=== PATIENT | female | born 1985 | race Caucasian/White ===

== ENCOUNTER 2018-12-09 16:42 | Outpatient (CLI) | payer BC ==
[2018-12-09 19:48] VITALS: BP 120/84; PULSE 88; RESP 18; TEMP 98.2
--- NOTE | 2018-12-22 16:11 | P.MSEPDOC ---
Presenting Problems - Arrival Data Date of Arrival on Unit: 12/09/18 Time of Arrival on Unit: 16:42 Mode of Transport: Ambulatory - Complaint OB-Reason for Admission/Chief Complaint: Decreased Movement Medical History - Information : 1 Para: 0 Term: 0 : 0 Abortions: Spontaneous or Elective: 0 Number of Living Children: 0 - Gestational Age Gestational Age by DOMENIC (wks/days): 39 Weeks and 6 Days Review of Systems - Review of Systems Constitutional: No problems Breast: No problems ENT: No problems Cardiovascular: No problems Respiratory: No problems Gastrointestinal: No problems Genitourinary: No problems Musculoskeletal: No problems Neurological: No problems Skin: No problems Vital Signs - Temperature Temperature: 98.2 F Temperature Source: Temporal Artery Scan - Pulse Right Pulse Rate: 88 Pulse Assessment Method: Pulse Oximetry - Respirations Respiratory Rate: 18 Oxygen Delivery Method: Room Air O2 Sat by Pulse Oximetry: 100 - Blood Pressure Right Arm Blood Pressure: 120/84 Blood Pressure Mean: 96 Blood Pressure Source: Automatic Cuff Medical Screen Scoring (Pre) - Cervical Exam Dilation: 1-3 cm = 1 Effacement: Exam Deferred Membranes: Intact - Uterine Contractions Frequency: > 5 minutes apart = 1 Duration: N/A Intensity: N/A - Maternal Vital Signs Maternal Temperature: N/A Maternal Blood Pressure: N/A Signs of Preeclampsia: N/A Maternal Respirations: N/A - Maternal Trauma Maternal Trauma: N/A - Assessment - Baby A Baseline FHR: 130 Heart Rate - NICHD Category: Category I (Normal) = 0 NST: Reactive Position: N/A Station: N/A - Total Score - Baby A Total Score - Baby A: 2 - Level of Risk - Baby A Level of Risk - Baby A: Low (0-5) - Pain Assessment Pain Location and Character: Abdomen Pain Scale Used: Numeric (1 - 10) Pain Intensity: 2 Pain Management Goal: 2 Pain Description: *Acute, Cramping, Tightness Pain Frequency: Intermittent Pain Duration Units: Minutes Pain Behavior: Vocalization Pain Aggravating Factors: Contractions Non-Pharmacological Interventions: Distraction, Environmental Control, Position/Reposition, Relaxation Technique Physician Notification (Pre) - Physician Notified Physician Notified Date: 12/09/18 Physician Notified Time: 17:35 Physician/Practitioner Notifed:: Spoke With: Dr. Horacio New Order Received: Yes (If pt hasn't made change in hour discharge home with instructions.) Medical Screen Scoring (Post) - Cervical Exam Dilation: 1-3 cm = 1 Effacement: Exam Deferred Membranes: Intact - Uterine Contractions Frequency: > 5 minutes apart = 1 Duration: N/A Intensity: N/A - Maternal Vital Signs Maternal Temperature: N/A Maternal Blood Pressure: N/A Signs of Preeclampsia: N/A Maternal Respirations: N/A - Pain Assessment Pain Location and Character: Abdomen Pain Scale Used: Numeric (1 - 10) Pain Intensity: 2 Pain Management Goal: 2 Pain Description: *Acute, Cramping, Tightness Pain Frequency: Intermittent Pain Duration Units: Minutes Pain Behavior: Vocalization Pain Aggravating Factors: Contractions Non-Pharmacological Interventions: Environmental Control, Position/Reposition, Relaxation Technique - Maternal Trauma Maternal Trauma: N/A - Assessment - Baby A Heart Rate: 130 Heart Rate - NICHD Category: Category I (Normal) = 0 NST: Reactive Position: N/A Station: N/A - Total Score Total Score - Baby A: 2 - Post Treatment Level of Risk Post Treatment Level of Risk - Baby A: Low (0-5) Disposition - Disposition OB Disposition: Discharge to home Discharge Date: 12/09/18 Discharge Time: 18:07 I agree with the RN Medical Screening Exam: Yes Risk & Benefit of care provided described in d/c instruction: Yes Diagnosis: DECREASED MOVEMENTS, THIRD TRIMESTER, UNSP
== END 2018-12-09 18:07 | disposition home or self-care (01) ==
LOC: FBPOP 16:42
PROVIDERS: ATTEND Obstetrics & Gynecology
DX: O36.8190 Decreased fetal movements, unspecified trimester, not applicable or unspecified (principal); Z3A.39 39 weeks gestation of pregnancy
CPT/HCPCS: 59025; 99213

== ENCOUNTER 2018-12-12 09:46 | Inpatient (IN) | payer BC ==
[2018-12-12] MEDS ORDERED: METHYLERGONOVINE 0.2 MG/ML 1 ML AMP IM PRN (10:48)
[2018-12-12] MEDS ORDERED: LIDOCAINE 0.5% (PF) 5 MG/ML (50 ML SDV) SQ PRN (10:48)
[2018-12-12] MEDS ORDERED: CARBOPROST TROMETHAMINE 250 MCG/ML 1 ML AMP IM PRN (10:48)
[2018-12-12] MEDS ORDERED: TERBUTALINE 1 MG/ML VIAL SQ PRN (10:48)
[2018-12-12] MEDS ORDERED: OXYTOCIN 10 UNIT/ML 1 ML VIAL IM PRN (10:48)
[2018-12-12] MEDS ORDERED: OXYTOCIN 30 UNITS/500 ML NS 30 UNIT in SALINE 1 500ML.BAG IV SCH (11:00)
[2018-12-12 11:16] VITALS: BMI 39.4
[2018-12-12 11:27] LABS: Basophils % (A) 0 %; Eosinophils # (A) 0.1 k/uL (0-0.7); Eosinophils % (A) 1 %; HCT 46.9 % (34.0-46.0); HGB 15.4 gm/dL (11.4-16.0); Lymphocytes # (A) 1.8 k/uL (1.0-4.8); Lymphocytes % (A) 14 %; MCH 29.3 pg (25.0-35.0); MCHC 32.8 g/dL (31.0-37.0); MCV 89.3 fL (80.0-100.0); Mean Platelet Volume 9.5; Monocytes # (A) 0.6 k/uL (0-1.0); Monocytes % (A) 5 %; Neutrophils # (A) 9.9 k/uL (1.3-7.7); Neutrophils % (A) 79 %; Platelet Count 248 k/uL (150-450); RBC 5.25 m/uL (3.80-5.40); RDW 14.7 % (11.5-15.5); WBC 12.6 k/uL (3.8-10.6)
[2018-12-12] MEDS: LACTATED RINGERS 1,000 ML IV SCH ×2 (11:28→20:06)
[2018-12-12] MEDS ORDERED: SODIUM CHLORIDE 0.9% 100 ML BAG ONE (11:44)
[2018-12-12] MEDS ORDERED: fentaNYL (PF) 50 MCG/ML 5 ML AMP ONE (11:44)
[2018-12-12] MEDS ORDERED: ROPIVACAINE 5MG/ML 20ML VIAL ONE (11:44)
--- NOTE | 2018-12-12 12:41 | P.HPOB ---
History of Present Illness H&P Date: 12/12/18 Chief Complaint: Contractions This is a 33-year-old female 1 para 0 with an estimated date of confinement of 12/10/2018, estimated gestational age of 40-2/7 weeks, who presents to labor and delivery with complaints of contractions that became stronger this morning. She was seen in the office by Dr. Leonard yesterday and apparently Dr. Leonard did strip her membranes. course has been uncomplicated per patient. labs: Hepatitis B surface antigen-negative RPR-nonreactive Rubella-immune Blood type-O+ Antibody screen-negative HIV-nonreactive Hemoglobin-14.4 Random glucose-75 Obstetrical ultrasound-normal anatomy One hour Glucola-120 Group B streptococcus-negative Obstetrical history: . Gynecologic history: No history of sexual transmitted diseases Social history: She is . 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 Review of Systems Constitutional: Denies chills, Denies fever Eyes: denies blurred vision, denies pain Ears, nose, mouth and throat: Denies headache, Denies sore throat Cardiovascular: Denies chest pain, Denies shortness of breath Respiratory: Denies cough Gastrointestinal: Reports abdominal pain (Contractions) Genitourinary: Reports pelvic pain, Reports Musculoskeletal: Reports low back pain Integumentary: Denies pruritus, Denies rash Neurological: Denies numbness, Denies weakness Past Medical History Past Medical History: GERD/Reflux Additional Past Medical History / Comment(s): Migraines History of Any Multi-Drug Resistant Organisms: None Reported Past Surgical History: Hernia Repair Additional Past Surgical History / Comment(s): age 6; excision of sebaceous cyst off of leg Past Anesthesia/Blood Transfusion Reactions: No Reported Reaction Past Psychological History: No Psychological Hx Reported Smoking Status: Never smoker Past Drug Use History: None Reported - Past Family History Father Family Medical History: No Reported History Medications and Allergies Home Medications Medication Instructions Recorded Confirmed Type Doxylamine Succinate [Unisom] 1 tab PO DAILY PRN 12/09/18 12/12/18 History Pnv 76/Iron,Gluc/Folic/Dss/Dha 1 tab PO DAILY 12/09/18 12/12/18 History [Citranatal Dha Pack] Ranitidine HCl [Zantac] 75 mg PO BID 12/09/18 12/12/18 History diphenhydrAMINE HCL [Benadryl] 25 mg PO HS 12/09/18 12/12/18 History Allergies Allergy/AdvReac Type Severity Reaction Status Date / Time No Known Allergies Allergy Verified 12/12/18 10:04 Exam Osteopathic Statement: *. No significant issues noted on an osteopathic structural exam other than those noted in the History and Physical/Consult. Vital Signs Temp Pulse Resp BP 12/12/18 10:07 98.1 F 88 16 123/81 Intake and Output 12/11/18 12/12/18 12/12/18 22:59 06:59 14:59 Other: Weight 121.109 kg HEENT: Within normal limits Heart: Regular rate and rhythm Lungs: Clear to auscultation bilaterally Abdomen: Cervix: Initially was 4 cm on admission to triage and she did make change to 5- 1/2 cm within an hour. Effacement is 90%, station is -2. Artificial rupture membranes is carried out and she is currently 6 cm/100%/-2 station. Meconium stained fluid is noted. heart tones: Reactive Contractions: Every 2-3 minutes Extremities: Negative Homans Results Result Diagrams: 12/12/18 11:05 Abnormal Lab Results - Last 24 Hours (Table) 12/12/18 Range/Units 11:05 WBC 12.6 H (3.8-10.6) k/uL Hct 46.9 H (34.0-46.0) % Neutrophils # 9.9 H (1.3-7.7) k/uL Assessment and Plan (1) 40 weeks gestation of Current Visit: Yes Status: Acute Code(s): Z3A.40 - 40 WEEKS GESTATION OF SNOMED Code(s): 78970079 (2) Meconium in amniotic fluid Current Visit: Yes Status: Acute Code(s): P96.83 - MECONIUM STAINING SNOMED Code(s): 957939458 Plan: Admission for active labor. Epidural anesthesia. Expectant management.
[2018-12-12] MEDS ORDERED: HYDROcodone/APAP 5-325MG 1 EACH TAB PO PRN (15:24)
[2018-12-12] MEDS ORDERED: SIMETHICONE 80 MG CHEWABLE PO PRN (15:24)
[2018-12-12] MEDS ORDERED: diphenhydrAMINE 50 MG CAP PO PRN (15:24)
[2018-12-12] MEDS ORDERED: ZOLPIDEM 5 MG TAB PO PRN (15:24)
[2018-12-12] MEDS ORDERED: diphenhydrAMINE 50 MG/ML 1 ML VIAL IVP PRN ×2 (15:24)
[2018-12-12] MEDS ORDERED: ACETAMINOPHEN TAB 325 MG TAB PO PRN (15:24)
[2018-12-12] MEDS ORDERED: HYDROCORTISONE 2.5% RECTAL CREAM 30 GM TUBE RECTAL PRN (15:24)
[2018-12-12] MEDS ORDERED: WITCH HAZEL 1 EACH MED..PAD TOPICAL PRN (15:24)
[2018-12-12] MEDS ORDERED: BENZOCAINE/MENTHOL SPRAY 1 GM/SPRAY AEROSOL TOPICAL PRN (15:24)
[2018-12-12] MEDS ORDERED: diphenhydrAMINE 25 MG CAP PO PRN (15:24)
[2018-12-12] MEDS ORDERED: LANOLIN CREAM 5 GM TUBE TOPICAL PRN (15:24)
[2018-12-12] MEDS ORDERED: OXYTOCIN 20 UNITS/1000 ML NS 1,000 ML IV SCH (15:30)
--- NOTE | 2018-12-12 16:42 | P.PROBDLV ---
Vaginal Delivery Note - . Vaginal Delivery Note: The patient progressed to complete dilation after artificial rupture membranes with thin meconium noted. She did receive epidural anesthesia. Once reaching complete dilation, she began pushing. Infant's head came to a crown. With one further push, the infant's head delivered across the perineum and a left occiput anterior lie followed by the anterior shoulder. Nose and mouth were bulb suctioned at the perineum. With one further push, the remainder the e asily delivered reducing nuchal cord times one around the body. was placed on mother's abdomen. Brisk cry was noted immediately. Cord was clamped and cut and was taken to warmer for evaluation. A viable female infant was noted with scores of 9 at 1 minute and 10 at 5 minutes and infant weight of 8 pounds 1.5 ounces. Placenta delivered shortly thereafter, intact, with a three-vessel cord. There is a slight marginal cord insertion noted. No other abnormalities were noted. Uterus contracted fairly well after oxytocin was given and uterine massage was carried out. Inspection of the perineum revealed a second-degree perineal laceration and a right periurethral laceration. The perineal laceration was repaired with 3-0 and 2-0 Vicryl suture in the usual multilayer fashion after anesthetizing with 1% lidocaine. At this time the right periurethral laceration was noted to be hemostatic and therefore no stitching was completed. Estimated blood loss is approximately 150 mL. Mother and are in stable condition.
[2018-12-12] MEDS: IBUPROFEN 600 MG TAB PO PRN (18:50)
[2018-12-12] MEDS: SENNOSIDES-DOCUSATE SODIUM 1 EACH TAB PO SCH (20:06)
[2018-12-13] MEDS: IBUPROFEN 600 MG TAB PO PRN ×4 (01:05→19:19)
[2018-12-13] MEDS: SENNOSIDES-DOCUSATE SODIUM 1 EACH TAB PO SCH ×3 (01:05→21:55)
--- NOTE | 2018-12-13 13:04 | P.DS ---
Providers Date of admission: 12/12/18 10:53 Expected date of discharge: 12/13/18 Attending physician: Jaylin Leonard Primary care physician: Stated None - Discharge Diagnosis(es) (1) Normal vaginal delivery Current Visit: Yes Status: Acute Hospital Course: Pt presented in active labor with SROM. She underwent a normal vaginal delivery. Her pp course was uncomplicated. She will be discharged home PPD #1 in stable condition to follow up with me in 6 weeks. Plan - Discharge Summary New Discharge Prescriptions: New Ibuprofen [Motrin] 600 mg PO Q6HR PRN #30 tab PRN Reason: Mild Pain Or Fever >= 100.5 No Action diphenhydrAMINE HCL [Benadryl] 25 mg PO HS Pnv 76/Iron,Gluc/Folic/Dss/Dha [Citranatal Dha Pack] 1 tab PO DAILY Ranitidine HCl [Zantac] 75 mg PO BID Doxylamine Succinate [Unisom] 1 tab PO DAILY PRN PRN Reason: Nausea Discharge Medication List Doxylamine Succinate [Unisom] 1 tab PO DAILY PRN 12/09/18 [History] Pnv 76/Iron,Gluc/Folic/Dss/Dha [Citranatal Dha Pack] 1 tab PO DAILY 12/09/18 [History] Ranitidine HCl [Zantac] 75 mg PO BID 12/09/18 [History] diphenhydrAMINE HCL [Benadryl] 25 mg PO HS 12/09/18 [History] Ibuprofen [Motrin] 600 mg PO Q6HR PRN #30 tab 12/13/18 [Rx] Follow up Appointment(s)/Referral(s): Jaylin Leonard DO [Doctor of Osteopathic Medicine] - 6 Weeks Discharge Disposition: HOME SELF-CARE
[2018-12-14] MEDS: IBUPROFEN 600 MG TAB PO PRN ×2 (04:19→10:25)
[2018-12-14] MEDS: SENNOSIDES-DOCUSATE SODIUM 1 EACH TAB PO SCH (08:00)
[2018-12-14 11:13] VITALS: BP 112/68; PULSE 80; RESP 18; TEMP 98.5
--- NOTE | 2018-12-14 11:45 | P.DS ---
Providers Date of admission: 12/12/18 10:53 Expected date of discharge: 12/14/18 Attending physician: Jaylin Leonard Primary care physician: Stated None Hospital Course: Discharge was canceled yesterday there are no changes to discharge summary today baby had to stay due to jaundice she will be discharged home today. Patient Condition at Discharge: Good Plan - Discharge Summary New Discharge Prescriptions: New Ibuprofen [Motrin] 600 mg PO Q6HR PRN #30 tab PRN Reason: Mild Pain Or Fever >= 100.5 No Action diphenhydrAMINE HCL [Benadryl] 25 mg PO HS Pnv 76/Iron,Gluc/Folic/Dss/Dha [Citranatal Dha Pack] 1 tab PO DAILY Ranitidine HCl [Zantac] 75 mg PO BID Doxylamine Succinate [Unisom] 1 tab PO DAILY PRN PRN Reason: Nausea Discharge Medication List Doxylamine Succinate [Unisom] 1 tab PO DAILY PRN 12/09/18 [History] Pnv 76/Iron,Gluc/Folic/Dss/Dha [Citranatal Dha Pack] 1 tab PO DAILY 12/09/18 [History] Ranitidine HCl [Zantac] 75 mg PO BID 12/09/18 [History] diphenhydrAMINE HCL [Benadryl] 25 mg PO HS 12/09/18 [History] Ibuprofen [Motrin] 600 mg PO Q6HR PRN #30 tab 12/13/18 [Rx] Follow up Appointment(s)/Referral(s): Jaylin Leonard DO [Doctor of Osteopathic Medicine] - 6 Weeks Discharge Disposition: HOME SELF-CARE
== END 2018-12-14 16:00 | disposition home or self-care (01) | DRG 806 ==
LOC: FBPOP 09:46 → 4FBP 10:53
PROVIDERS: ADMIT Obstetrics & Gynecology; ATTEND Obstetrics & Gynecology
PROC: 10E0XZZ Delivery of Products of Conception, External Approach (ICD-10-PCS; principal; 2018-12-12)
PROC: 0KQM0ZZ Repair Perineum Muscle, Open Approach (ICD-10-PCS; 2018-12-12)
PROC: 00HU33Z Insertion of Infusion Device into Spinal Canal, Percutaneous Approach (ICD-10-PCS; 2018-12-12)
PROC: 3E0R3BZ Introduction of Anesthetic Agent into Spinal Canal, Percutaneous Approach (ICD-10-PCS; 2018-12-12)
DX: O77.0 Labor and delivery complicated by meconium in amniotic fluid (principal); O99.354 Diseases of the nervous system complicating childbirth; O69.81X0 Labor and delivery complicated by cord around neck, without compression, not applicable or unspecified; G43.909 Migraine, unspecified, not intractable, without status migrainosus; O99.62 Diseases of the digestive system complicating childbirth; K21.9 Gastro-esophageal reflux disease without esophagitis; O70.1 Second degree perineal laceration during delivery; O71.82 Other specified trauma to perineum and vulva; Z37.0 Single live birth; Z3A.40 40 weeks gestation of pregnancy
CPT/HCPCS: 59025; 85025; 86850; 86900; 86901; 99213

== ENCOUNTER → 2020-02-26 | Outpatient (CLI) | payer BC ==
[~2020-02-26] MED LIST: CALCIUM CARBONATE LIQUID 500 MG/5 ML CUP PO SCH; HYDROcodone/APAP 5-325MG 1 EACH TAB PO STA
[2020-02-26 17:09] VITALS: BP 121/79; PULSE 88; RESP 18; TEMP 96.7
--- NOTE | 2020-02-26 17:39 | P.MSEPDOC ---
Presenting Problems - Arrival Data Date of Arrival on Unit: 02/26/20 Time of Arrival on Unit: 14:40 Mode of Transport: Ambulatory - Complaint OB-Reason for Admission/Chief Complaint: Headache Comment: migraine Medical History - Information : 2 Para: 1 Term: 1 : 0 Abortions: Spontaneous or Elective: 0 Number of Living Children: 1 - Gestational Age Gestational Age by DOMENIC (wks/days): 40 Weeks and 1 Days Review of Systems - Review of Systems Constitutional: No problems Breast: No problems ENT: No problems Cardiovascular: No problems Respiratory: No problems Gastrointestinal: No problems Genitourinary: No problems Musculoskeletal: No problems Neurological: No problems Skin: No problems Vital Signs - Temperature Temperature: 96.7 F Temperature Source: Temporal Artery Scan - Pulse Right Brachial Pulse Rate: 88 Pulse Assessment Method: Automatic Cuff - Respirations Respiratory Rate: 18 Oxygen Delivery Method: Room Air - Blood Pressure Right Arm Blood Pressure: 121/79 Blood Pressure Mean: 93 Blood Pressure Source: Automatic Cuff Medical Screen Scoring (Pre) - Cervical Exam Dilation: 1-3 cm = 1 Effacement: More than 50% = 2 Membranes: Intact - Uterine Contractions Frequency: > or = 36 weeks =2 Duration: > 40 seconds = 2 Intensity: N/A - Maternal Vital Signs Maternal Temperature: N/A Maternal Blood Pressure: N/A Signs of Preeclampsia: N/A Maternal Respirations: N/A - Maternal Trauma Maternal Trauma: N/A - Assessment - Baby A Baseline FHR: 125 Heart Rate - NICHD Category: Category I (Normal) = 0 NST: Reactive Position: N/A Station: N/A - Total Score - Baby A Total Score - Baby A: 7 - Total Score - Baby B Total Score - Baby B: 7 - Total Score - Baby C Total Score - Baby C: 7 - Level of Risk - Baby A Level of Risk - Baby A: Medium (6-9) - Level of Risk - Baby B Level of Risk - Baby B: Medium (6-9) - Level of Risk - Baby C Level of Risk - Baby C: Medium (6-9) Physician Notification (Pre) - Physician Notified Physician Notified Date: 02/26/20 Physician Notified Time: 15:39 New Order Received: Yes (Jennifer, may go home or stay obv if prefers) - Notification Comment Comment: [place] helped some, pt wanted to go home and come back in am for induction Disposition - Disposition OB Disposition: Triage, Discharge to home, Written follow up instructions reviewed Discharge Date: 02/26/20 Discharge Time: 16:28 I agree with the RN Medical Screening Exam: Yes Risk & Benefit of care provided described in d/c instruction: Yes Diagnosis: MIGRAINE W/O AURA, INTRACTABLE, WITHOUT STATUS MIGRAINOSUS
== END ==
LOC: FBPOP 14:40
PROVIDERS: ATTEND Obstetrics & Gynecology
DX: O99.89 Other specified diseases and conditions complicating pregnancy, childbirth and the puerperium (principal); G43.019 Migraine without aura, intractable, without status migrainosus; Z3A.40 40 weeks gestation of pregnancy
CPT/HCPCS: 59025; 99213

== ENCOUNTER 2020-02-27 06:15 | Inpatient (IN) | payer BC ==
[2020-02-27] MEDS ORDERED: TERBUTALINE 1 MG/ML VIAL SQ PRN (06:41)
[2020-02-27] MEDS ORDERED: CARBOPROST TROMETHAMINE 250 MCG/ML 1 ML AMP IM PRN (06:41)
[2020-02-27] MEDS ORDERED: OXYTOCIN 10 UNIT/ML 1 ML VIAL IM PRN (06:41)
[2020-02-27] MEDS ORDERED: LIDOCAINE 0.5% (PF) 5 MG/ML (50 ML SDV) SQ PRN (06:41)
[2020-02-27] MEDS: LACTATED RINGERS 1,000 ML IV SCH ×2 (06:49→11:38)
[2020-02-27] MEDS: OXYTOCIN 30 UNITS/500 ML NS 30 UNIT in SALINE 1 500ML.BAG IV SCH (07:00)
[2020-02-27 07:11] LABS: Basophils % (A) 0 %; Eosinophils # (A) 0.2 k/uL (0-0.7); Eosinophils % (A) 2 %; HCT 41.7 % (34.0-46.0); HGB 13.7 gm/dL (11.4-16.0); Lymphocytes # (A) 2.2 k/uL (1.0-4.8); Lymphocytes % (A) 25 %; MCH 29.7 pg (25.0-35.0); MCHC 32.9 g/dL (31.0-37.0); MCV 90.4 fL (80.0-100.0); Mean Platelet Volume 9.5; Monocytes # (A) 0.6 k/uL (0-1.0); Monocytes % (A) 7 %; Neutrophils # (A) 5.9 k/uL (1.3-7.7); Neutrophils % (A) 65 %; Platelet Count 204 k/uL (150-450); RBC 4.62 m/uL (3.80-5.40); RDW 13.2 % (11.5-15.5); WBC 9.1 k/uL (3.8-10.6)
[2020-02-27] MEDS ORDERED: ROPIVACAINE 5MG/ML 20ML VIAL ONE (10:41)
[2020-02-27] MEDS ORDERED: SODIUM CHLORIDE 0.9% 100 ML BAG ONE (10:41)
[2020-02-27] MEDS ORDERED: fentaNYL (PF) 50 MCG/ML 5 ML AMP ONE (10:41)
[2020-02-27] MEDS ORDERED: ACETAMINOPHEN TAB 325 MG TAB PO PRN (16:16)
[2020-02-27] MEDS ORDERED: LANOLIN CREAM 5 GM TUBE TOPICAL PRN (16:16)
[2020-02-27] MEDS ORDERED: diphenhydrAMINE 50 MG CAP PO PRN (16:16)
[2020-02-27] MEDS ORDERED: ZOLPIDEM 5 MG TAB PO PRN (16:16)
[2020-02-27] MEDS ORDERED: diphenhydrAMINE 25 MG CAP PO PRN (16:16)
[2020-02-27] MEDS ORDERED: BENZOCAINE/MENTHOL SPRAY 1 GM/SPRAY AEROSOL TOPICAL PRN (16:16)
[2020-02-27] MEDS: IBUPROFEN 600 MG TAB PO PRN ×2 (16:36→21:16)
[2020-02-27] MEDS: OXYTOCIN 20 UNITS/1000 ML NS 1,000 ML IV SCH ×2 (16:39→19:47)
[2020-02-27] MEDS: METHYLERGONOVINE 0.2 MG/ML 1 ML AMP IM PRN ×2 (18:08→20:23)
[2020-02-27] MEDS ORDERED: BUTORPHANOL 1 MG/ML 1 ML VIAL IV PRN (18:28)
--- NOTE | 2020-02-27 20:27 | P.HPOB ---
History of Present Illness H&P Date: 02/27/20 Chief Complaint: Induction of labor 34-year-old presents at 40 weeks and 2 days for induction of labor. Her cervix is 3 cm dilated, 70% effaced, and -2 station. She is lyndsay irregularly. heart tones 135 with moderate variability and reactive. Review of Systems All systems: negative Constitutional: Denies chills, Denies fever Eyes: denies blurred vision, denies pain Ears, nose, mouth and throat: Denies headache, Denies sore throat Cardiovascular: Denies chest pain, Denies shortness of breath Respiratory: Denies cough Gastrointestinal: Denies abdominal pain, Denies diarrhea, Denies nausea, Denies vomiting Genitourinary: Denies dysuria, Denies hematuria Musculoskeletal: Denies myalgias Integumentary: Denies pruritus, Denies rash Neurological: Denies numbness, Denies weakness Psychiatric: Denies anxiety, Denies depression Endocrine: Denies fatigue, Denies weight change Past Medical History Past Medical History: GERD/Reflux Additional Past Medical History / Comment(s): Migraines. Obstetric history: She's had one previous vaginal delivery. This is her second . She's had care with me since the first trimester. Blood type is O+, abs negative, rubella immune, hep B-, GBS negative, RPR nonreactive. History of Any Multi-Drug Resistant Organisms: None Reported Past Surgical History: Hernia Repair Additional Past Surgical History / Comment(s): age 6; excision of sebaceous cyst off of leg Past Anesthesia/Blood Transfusion Reactions: No Reported Reaction Past Psychological History: No Psychological Hx Reported Smoking Status: Never smoker Past Drug Use History: None Reported - Past Family History Father Family Medical History: No Reported History Medications and Allergies Home Medications Medication Instructions Recorded Confirmed Type RX: Pnv 76/Iron,Gluc/Folic/Dss/Dha 1 tab PO DAILY 12/09/18 02/27/20 History [Citranatal Dha Pack] diphenhydrAMINE HCL [Benadryl] 25 mg PO HS 12/09/18 02/27/20 History Cholecalciferol [Vitamin D3 (25 50 mcg PO DAILY 02/26/20 02/27/20 History Mcg = 1000 Iu)] RX: Melatonin 5 mg PO HS PRN 02/26/20 02/27/20 History Allergies Allergy/AdvReac Type Severity Reaction Status Date / Time No Known Allergies Allergy Verified 02/27/20 06:40 Exam Osteopathic Statement: *. No significant issues noted on an osteopathic structural exam other than those noted in the History and Physical/Consult. Vital Signs Temp Pulse Resp BP Pulse Ox 02/27/20 20:00 80 72/50 02/27/20 19:55 88 14 85/58 99 02/27/20 18:20 97.8 F 96 16 115/65 02/27/20 17:50 97.4 F L 93 16 116/71 98 02/27/20 17:01 95 16 112/74 02/27/20 16:35 90 16 112/74 02/27/20 15:55 114 H 16 96/55 02/27/20 15:40 102 H 16 103/58 02/27/20 15:25 105 H 16 104/57 02/27/20 15:10 106 H 16 126/60 02/27/20 14:55 97.8 F 103 H 16 120/65 02/27/20 08:00 97.3 F L 94 16 127/82 Intake and Output 02/27/20 02/27/20 02/27/20 06:59 14:59 22:59 Intake Total 391.667 Output Total 100 Balance 291.667 Intake: Intake, IV Titration 391.667 Amount Oxytocin 20 Units/1000 ml 391.667 Ns 1,000 ml @ Per Protocol IV .Q0M [facility] Rx#: [id number] Output: Estimated Blood Loss 100 Other: # Voids 1 Weight 124.738 kg 124.738 kg Heart: Regular rate and rhythm Lungs: Clear to auscultation bilaterally Abdomen: Soft, nontender Extremities: Negative Homans sign Results Result Diagrams: 02/27/20 06:40 Assessment and Plan (1) Normal labor Current Visit: Yes Status: Acute Code(s): O80 - ENCOUNTER FOR FULL-TERM UNCOMPLICATED DELIVERY; Z37.9 - OUTCOME OF DELIVERY, UNSPECIFIED SNOMED Code(s): 12506073 Plan: 1. Induction of labor with amniotomy and Pitocin 2. Anticipate normal vaginal delivery.
--- NOTE | 2020-02-27 20:31 | P.PROBDLV ---
Vaginal Delivery Note - . Vaginal Delivery Note: 34-year-old presents at 40 weeks and 2 days for induction of labor. Her cervix is 3 cm dilated, 70% effaced, and -2 station. She is lyndsay irregularly. heart tones 135 with moderate variability and reactive. Amniotomy was performed at 7:13 AM and clear fluid noted. Pitocin was also started. When she was uncomfortable she did get an epidural. Her cervix was completely dilated around 2:30 in the afternoon. She pushed, delivered a viable male over intact perineum under epidural anesthesia at 1442. Head delivered OA, anterior shoulder attempted to be delivered but was not moving despite pushing and gentle downward guidance. A shoulder dystocia was identified and patient was placed in Becky position. The posterior shoulder was delivered followed by the anterior shoulder and the rest of the body. Total time between the head delivering and the rest of the body was less than 30 seconds. Nose and mouth bulb suctioned, cord clamped and cut, placed on mother's abdomen. Apgars 9, 9, weight 9 lbs. 1 oz. Placenta delivered spontaneously, intact with three-vessel cord at 1444. Vagina, cervix, and perineum were inspected. First-degree midline laceration was repaired with 3-0 Vicryl. Estimated blood loss 100 mL. Mother and baby in stable condition.
[2020-02-27 20:38] LABS: Basophils % (A) 0 %; Eosinophils # (A) 0.1 k/uL (0-0.7); Eosinophils % (A) 1 %; HCT 36.1 % (34.0-46.0); Lymphocytes # (A) 3.1 k/uL (1.0-4.8); Lymphocytes % (A) 21 %; MCH 30.2 pg (25.0-35.0); MCHC 33.1 g/dL (31.0-37.0); MCV 91.2 fL (80.0-100.0); Monocytes # (A) 0.8 k/uL (0-1.0); Monocytes % (A) 5 %; Neutrophils # (A) 10.7 k/uL (1.3-7.7); Neutrophils % (A) 71 %; Platelet Count 212 k/uL (150-450); RBC 3.96 m/uL (3.80-5.40); RDW 13.2 % (11.5-15.5); WBC 14.9 k/uL (3.8-10.6)
[2020-02-27] MEDS: SIMETHICONE 80 MG CHEWABLE PO PRN (22:42)
[2020-02-28] MEDS: SENNOSIDES-DOCUSATE SODIUM 1 EACH TAB PO SCH ×3 (02:59→21:12)
[2020-02-28] MEDS: IBUPROFEN 600 MG TAB PO PRN ×4 (03:05→18:42)
[2020-02-28 07:38] LABS: Basophils % (A) 0 %; Eosinophils # (A) 0.1 k/uL (0-0.7); Eosinophils % (A) 1 %; HCT 27.6 % (34.0-46.0); Lymphocytes # (A) 2.5 k/uL (1.0-4.8); Lymphocytes % (A) 22 %; MCH 30.1 pg (25.0-35.0); MCHC 33.1 g/dL (31.0-37.0); MCV 90.9 fL (80.0-100.0); Mean Platelet Volume 10.8; Monocytes # (A) 0.5 k/uL (0-1.0); Monocytes % (A) 4 %; Neutrophils # (A) 8.3 k/uL (1.3-7.7); Neutrophils % (A) 72 %; Platelet Count 183 k/uL (150-450); RBC 3.03 m/uL (3.80-5.40); RDW 13.5 % (11.5-15.5); WBC 11.6 k/uL (3.8-10.6)
[2020-02-28 07:43] LABS: HGB 9.1 gm/dL (11.4-16.0)
[2020-02-28] MEDS: LACTATED RINGERS 1,000 ML IV SCH ×2 (08:31→16:20)
[2020-02-28] MEDS: OXYTOCIN 30 UNITS/500 ML NS 30 UNIT in SALINE 1 500ML.BAG IV SCH (08:32)
--- NOTE | 2020-02-28 10:26 | P.PNOBGVD ---
Subjective - Subjective Principal diagnosis: Status post normal vaginal delivery day #1 Interval history: Physical patient's bedside yesterday evening for increased cramping and blood clots. When I came to the bedside and the patient was in mild distress, cramping and complaining of back pain. Her vital signs were stable. A massage her uterus and manually evacuated clots from her uterus. I did this 2 times and at the end the quantitative blood loss was around a liter. Over the course of the next couple hours her bleeding decreased slowly. I did have to give her 2 doses of Methergine and increased the dose and rate. Her blood pressure did go down but she was not tachycardic. She did get a little bit dizzy at times. Hemoglobin went from 13.7-12. Today the hemoglobin is 9.1 which is likely and neck. Reflection of the blood loss less than. Today she is feeling much better, not dizzy when she gets up to the bathroom, her bleeding has slowed significantly, vital signs are stable. Patient reports: Reports appetite normal, Reports voiding normally, Reports pain well controlled, Reports ambulating normally [place]: doing well Objective - Latest Vital Signs Latest vital signs: Vital Signs Temp Pulse Resp BP Pulse Ox 02/28/20 08:00 100 02/28/20 07:45 98.6 F 103 H 18 101/63 100 02/28/20 04:00 98 F 96 14 99/62 100 02/28/20 00:00 98.9 F 97 14 93/61 99 02/27/20 20:36 78/54 02/27/20 20:00 80 72/50 02/27/20 19:55 88 14 85/58 99 02/27/20 18:20 97.8 F 96 16 115/65 02/27/20 17:50 97.4 F L 93 16 116/71 98 02/27/20 17:01 95 16 112/74 02/27/20 16:35 90 16 112/74 02/27/20 15:55 114 H 16 96/55 02/27/20 15:40 102 H 16 103/58 02/27/20 15:25 105 H 16 104/57 02/27/20 15:10 106 H 16 126/60 02/27/20 14:55 97.8 F 103 H 16 120/65 Intake and Output 02/27/20 02/28/2002/27/20 22:59 06:59 14:59 Intake Total 391.667 Output Total 200 600 Balance 191.667 -600 Intake: Intake, IV Titration 391.667 Amount Oxytocin 20 Units/1000 ml 391.667 Ns 1,000 ml @ Per Protocol IV .Q0M [facility] Rx#: [id number] Output: Urine 100 600 Straight 100 Estimated Blood Loss 100 Other: Voiding Method Toilet # Voids 1 1 1 # Bowel Movements 1 - Exam Lungs: bilateral: normal Chest: Normal S1, Normal S2 Extremities: Present: normal Abdomen: Present: normal appearance, soft Uterus: Present: normal, firm - Labs Labs: Abnormal Lab Results - Last 24 Hours (Table) 02/27/20 02/28/20 Range/Units 20:09 06:47 WBC 14.9 H 11.6 H (3.8-10.6) k/uL RBC 3.03 L (3.80-5.40) m/uL Hgb 9.1 L D (11.4-16.0) gm/dL Hct 27.6 L (34.0-46.0) % Neutrophils # 10.7 H 8.3 H (1.3-7.7) k/uL Assessment and Plan (1) Normal labor Current Visit: Yes Status: Resolved Code(s): O80 - ENCOUNTER FOR FULL-TERM UNCOMPLICATED DELIVERY; Z37.9 - OUTCOME OF DELIVERY, UNSPECIFIED SNOMED Code(s): 82273804 (2) Normal vaginal delivery Current Visit: No Status: Acute Code(s): O80 - ENCOUNTER FOR FULL-TERM UNCOMPLICATED DELIVERY SNOMED Code(s): 02640339 (3) hemorrhage Current Visit: Yes Status: Acute Code(s): O72.1 - OTHER IMMEDIATE HEMORRHAGE SNOMED Code(s): 19815788 (4) Anemia due to acute blood loss Current Visit: Yes Status: Acute Code(s): D62 - ACUTE POSTHEMORRHAGIC ANEMIA SNOMED Code(s): 018768127 Plan: 1. Continue to monitor bleeding 2. Monitor vitals closely 3. care
[2020-02-28] MEDS ORDERED: HYDROcodone/APAP 7.5-325MG 1 EACH TAB PO ONE (19:33)
[2020-02-28] MEDS: SIMETHICONE 80 MG CHEWABLE PO PRN (23:13)
[2020-02-29] MEDS: IBUPROFEN 600 MG TAB PO PRN (05:15)
--- NOTE | 2020-02-29 07:04 | P.DS ---
Providers Date of admission: 02/27/20 06:28 Expected date of discharge: 02/29/20 Attending physician: Jaylin Leonard Primary care physician: Stated None - Discharge Diagnosis(es) (1) Normal labor Current Visit: Yes Status: Resolved (2) Normal vaginal delivery Current Visit: No Status: Acute (3) hemorrhage Current Visit: Yes Status: Acute (4) Anemia due to acute blood loss Current Visit: Yes Status: Acute Hospital Course: Patient presented for induction of labor. She underwent normal vaginal delivery. course was complicated by hemorrhage a few hours after her delivery due to uterine atony. This resolved with manual extraction of clots, Pitocin and Methergine. Her hemoglobin went from 13.7-9.1. Her blood pressure is stable she is not tachycardic, no headache no vision changes no shortness of breath no fever nor chills no chest pain or dizziness with standing. She was discharged home day #2 in stable condition to follow-up with me in 6 weeks. Plan - Discharge Summary New Discharge Prescriptions: New Ibuprofen [Motrin] 600 mg PO Q6HR PRN #30 tab PRN Reason: Mild Pain Or Fever >= 100.5 No Action diphenhydrAMINE HCL [Benadryl] 25 mg PO HS Pnv 76/Iron,Gluc/Folic/Dss/Dha [Citranatal Dha Pack] 1 tab PO DAILY Melatonin 5 mg PO HS PRN PRN Reason: Insomnia Cholecalciferol [Vitamin D3 (25 Mcg = 1000 Iu)] 50 mcg PO DAILY Discharge Medication List Pnv 76/Iron,Gluc/Folic/Dss/Dha [Citranatal Dha Pack] 1 tab PO DAILY 12/09/18 [History] diphenhydrAMINE HCL [Benadryl] 25 mg PO HS 12/09/18 [History] Cholecalciferol [Vitamin D3 (25 Mcg = 1000 Iu)] 50 mcg PO DAILY 02/26/20 [His tory] Melatonin 5 mg PO HS PRN 02/26/20 [History] Ibuprofen [Motrin] 600 mg PO Q6HR PRN #30 tab 02/29/20 [Rx] Follow up Appointment(s)/Referral(s): Jaylin Leonard DO [Doctor of Osteopathic Medicine] - 6 Weeks Discharge Disposition: HOME SELF-CARE
[2020-02-29 08:49] VITALS: BP 120/66; PULSE 110; RESP 18; TEMP 98.8
[2020-02-29] MEDS: SENNOSIDES-DOCUSATE SODIUM 1 EACH TAB PO SCH (12:39)
== END 2020-02-29 10:27 | disposition home or self-care (01) | DRG 806 ==
LOC: 4FBP 06:28
PROVIDERS: ADMIT Obstetrics & Gynecology; ATTEND Obstetrics & Gynecology
PROC: 3E0R3NZ Introduction of Analgesics, Hypnotics, Sedatives into Spinal Canal, Percutaneous Approach (ICD-10-PCS; principal; 2020-02-27)
PROC: 3E033VJ Introduction of Other Hormone into Peripheral Vein, Percutaneous Approach (ICD-10-PCS; principal; 2020-02-27)
PROC: 0HQ9XZZ Repair Perineum Skin, External Approach (ICD-10-PCS; principal; 2020-02-27)
PROC: 10E0XZZ Delivery of Products of Conception, External Approach (ICD-10-PCS; principal; 2020-02-27)
PROC: 10907ZC Drainage of Amniotic Fluid, Therapeutic from Products of Conception, Via Natural or Artificial Opening (ICD-10-PCS; principal; 2020-02-27)
PROC: 00HU33Z Insertion of Infusion Device into Spinal Canal, Percutaneous Approach (ICD-10-PCS; principal; 2020-02-27)
DX: O66.0 Obstructed labor due to shoulder dystocia (principal); O72.1 Other immediate postpartum hemorrhage; Z37.0 Single live birth; D62 Acute posthemorrhagic anemia; O70.0 First degree perineal laceration during delivery; O99.02 Anemia complicating childbirth; Z3A.40 40 weeks gestation of pregnancy
CPT/HCPCS: 85025; 86850; 86900; 86901